=== PATIENT | female | born 1970 | race American Indian/Alaskan Native ===

== ENCOUNTER 2017-02-23 13:54 | Emergency (ER) | payer SELFPAY ==
[2017-02-23 15:02] LABS: Basophils % (Auto) 0.6 % (0.0-1.8); Eosinophils % (Auto) 2.8 % (0.0-4.3); Hematocrit 40.7 % (30.3-42.9); Hemoglobin 13.6 gm/dl (10.1-14.3); Mean Corpuscular HGB Conc 33 % (30-34); Mean Corpuscular Hemoglobin 30 pg (28-32); Mean Corpuscular Volume 90 fl (79-97); Platelet Count 344 K/mm3 (140-440); Red Blood Count 4.51 M/mm3 (3.65-5.03); Red Cell Distribution Width 13.3 % (13.2-15.2); White Blood Count 6.5 K/mm3 (4.5-11.0)
[2017-02-23 15:13] LABS: INR 0.97 (0.87-1.13); Partial Thromboplastin Time 28.6 Sec. (24.2-36.6)
[2017-02-23 15:26] LABS: Anion Gap 17 mmol/L; BUN/Creatinine Ratio 13.75; Blood Urea Nitrogen 11 mg/dL (7-17); Calcium 9.7 mg/dL (8.4-10.2); Carbon Dioxide 26 mmol/L (22-30); Chloride 100.3 mmol/L (98-107); Glucose 78 mg/dL (65-100); Potassium 4.1 mmol/L (3.6-5.0); Sodium 139 mmol/L (137-145)
[2017-02-23] MEDS ORDERED: NACL 0.9% 1000 ML 1,000 ML ONE (17:56)
[2017-02-23] MEDS ORDERED: ULTRAM PO ONE (21:39)
[2017-02-23] MEDS ORDERED: TORADOL IM ONE (21:39)
--- NOTE | 2017-02-23 21:48 | Emergency Department Report ---
ED Chest Pain HPI - General Chief Complaint: Chest Pain Stated Complaint: ABDOMEN, PAIN JAIME BREAST Time Seen by Provider: 02/23/17 21:25 Source: patient Mode of arrival: Ambulatory Limitations: Language Barrier - History of Present Illness Initial Comments: 46-year-old female with a past medical history of hypertension presents to the hospital complaining of 3 weeks of left lower chest wall pain under her left breast. Pain is only present with palpation. Pain rated 7/10 in intensity. Also complains of lower midsternal tenderness. She denies cough, shortness of breath, fever, recent trauma, nausea, vomiting, or diaphoresis. Patient returned from [facility] to 3 weeks ago and states pain started while in [place]. She is noncompliant with her blood pressure medication because it makes her feel dizzy and restless. She denies calf tenderness, edema, or leg asymmetry Severity scale (0 -10): 4 - Related Data Previous Rx's Medication Instructions Recorded Last Taken Type Ibuprofen [Motrin] 800 mg PO Q8HR PRN #30 tablet 02/23/17 Unknown Rx traMADol [Ultram 50 MG tab] 50 mg PO Q6HR PRN #20 tablet 02/23/17 Unknown Rx Allergies Allergy/AdvReac Type Severity Reaction Status Date / Time amlodipine Allergy Dizziness Verified 02/23/17 14:30 Heart Score - HEART Score History: Slightly suspicious EKG: Normal Age: 45-65 Risk factors: 1-2 risk factors Troponin: < normal limit HEART Score: 2 ED Review of Systems ROS: Stated complaint: ABDOMEN, PAIN JAIME BREAST Other details as noted in HPI Comment: All other systems reviewed and negative Other: Constitutional: No fevers chills Eyes: No eye pain visual changes ENT: No ear pain or throat pain Neck: Denies pain Respiratory: Denies cough wheezing shortness of breath Cardiovascular: As per HPI GI: Denies abdominal pain, nausea, vomiting, diarrhea : Denies dysuria Musculoskeletal: Denies back pain Skin: Denies rash, lesions, erythema Neurologic: Denies headache, numbness, weakness Psychiatric: Denies suicidal ideation, hallucinations ED Past Medical Hx - Past Medical History Previous Medical History?: Yes Hx Hypertension: Yes - Surgical History Past Surgical History?: No - Social History Smoking Status: Never Smoker - Medications Home Medications: Home Medications Medication Instructions Recorded Confirmed Last Taken Type Ibuprofen [Motrin] 800 mg PO Q8HR PRN #30 tablet 02/23/17 Unknown Rx traMADol [Ultram 50 MG tab] 50 mg PO Q6HR PRN #20 tablet 02/23/17 Unknown Rx ED Physical Exam - General Limitations: Language Barrier - Other Other exam information: General: No limitations, patient is alert in no acute distress Head exam: Atraumatic, normocephalic Eyes exam: Normal appearance ENT: Moist mucous membrane, normal oropharynx Neck exam: Normal inspection, full range of motion, no meningismus nontender Respiratory exam: Clear to auscultation bilateral, no wheezes, rales, crackles Cardiovascular: Normal rate and rhythm, reproducible chest wall tenderness at a specific area of the anterior lower left ribs and the lower sternum Abdomen: Soft, nondistended, and nontender, with normal bowel sounds, no rebound, or guarding Extremity: Full range of motion normal inspection no deformity, no calf tenderness or edema Back: Normal Inspection, full range of motion, no tenderness Neurologic: Alert, oriented x3, cranial nerves intact, no motor or sensory deficit Psychiatric: normal affect, normal mood Skin: Warm, dry, intact ED Course Vital Signs 02/23/17 02/23/17 14:30 20:44 Temperature 98.5 F Pulse Rate 70 80 Respiratory 16 16 Rate Blood Pressure 160/99 Blood Pressure 164/80 [Left] O2 Sat by Pulse 100 100 Oximetry - Reevaluation(s) Reevaluation #1: 02/23/17 21:46 Toradol and tramadol ordered. D-dimer and chest x-ray pending. RONA score - Rona Score Age > 65: (0) No Aspirin use within the Past 7 Days: (0) No 3 or more CAD Risk Factors: (0) No 2 or more Angina events in past 24 hrs: (0) No Known CAD with more than 50% Stenosis: (0) No Elevated Cardiac Markers: (0) No ST Deviation Greater than 0.5mm: (0) No RONA Score: 0 ED Medical Decision Making - Lab Data Result diagrams: 02/23/17 14:44 02/23/17 14:44 Lab Results 02/23/17 02/23/17 02/23/17 Range/Units 14:44 14:44 14:44 WBC 6.5 (4.5-11.0) K/mm3 RBC 4.51 (3.65-5.03) M/mm3 Hgb 13.6 (10.1-14.3) gm/dl Hct 40.7 (30.3-42.9) % MCV 90 (79-97) fl MCH 30 (28-32) pg MCHC 33 (30-34) % RDW 13.3 (13.2-15.2) % Plt Count 344 (140-440) K/mm3 Lymph % (Auto) 50.9 H (13.4-35.0) % [place] % (Auto) 8.2 H (0.0-7.3) % Eos % (Auto) 2.8 (0.0-4.3) % Baso % (Auto) 0.6 (0.0-1.8) % Lymph # 3.3 (1.2-5.4) K/mm3 [place] # 0.5 (0.0-0.8) K/mm3 Eos # 0.2 (0.0-0.4) K/mm3 Baso # 0.0 (0.0-0.1) K/mm3 Seg Neutrophils % 37.5 L (40.0-70.0) % Seg Neutrophils # 2.5 (1.8-7.7) K/mm3 PT 12.8 (12.2-14.9) Sec. INR 0.97 (0.87-1.13) APTT 28.6 (24.2-36.6) Sec. D-Dimer (0-234) ng/mlDDU Sodium 139 (137-145) mmol/L Potassium 4.1 (3.6-5.0) mmol/L Chloride 100.3 (98-107) mmol/L Carbon Dioxide 26 (22-30) mmol/L Anion Gap 17 mmol/L BUN 11 (7-17) mg/dL Creatinine 0.8 (0.7-1.2) mg/dL Estimated GFR > 60 ml/min BUN/Creatinine Ratio 13.75 % Glucose 78 (65-100) mg/dL Calcium 9.7 (8.4-10.2) mg/dL Troponin T < 0.010 (0.00-0.029) ng/mL 02/23/17 02/23/17 02/23/17 Range/Units 17:08 19:29 21:44 WBC (4.5-11.0) K/mm3 RBC (3.65-5.03) M/mm3 Hgb (10.1-14.3) gm/dl Hct (30.3-42.9) % MCV (79-97) fl MCH (28-32) pg MCHC (30-34) % RDW (13.2-15.2) % Plt Count (140-440) K/mm3 Lymph % (Auto) (13.4-35.0) % [place] % (Auto) (0.0-7.3) % Eos % (Auto) (0.0-4.3) % Baso % (Auto) (0.0-1.8) % Lymph # (1.2-5.4) K/mm3 [place] # (0.0-0.8) K/mm3 Eos # (0.0-0.4) K/mm3 Baso # (0.0-0.1) K/mm3 Seg Neutrophils % (40.0-70.0) % Seg Neutrophils # (1.8-7.7) K/mm3 PT (12.2-14.9) Sec. INR (0.87-1.13) APTT (24.2-36.6) Sec. D-Dimer < 135.00 (0-234) ng/mlDDU Sodium (137-145) mmol/L Potassium (3.6-5.0) mmol/L Chloride (98-107) mmol/L Carbon Dioxide (22-30) mmol/L Anion Gap mmol/L BUN (7-17) mg/dL Creatinine (0.7-1.2) mg/dL Estimated GFR ml/min BUN/Creatinine Ratio % Glucose (65-100) mg/dL Calcium (8.4-10.2) mg/dL Troponin T < 0.010 < 0.010 (0.00-0.029) ng/mL - EKG Data -: EKG Interpreted by Me (sinus rhythm rate 72 left atrial enlargement, no ST elevation) - EKG Data 02/23/17 21:47 Repeat EKG sinus rate [address] elevation - Radiology Data Radiology results: image reviewed (chest x-ray PA and lateral: No acute findings ) - Medical Decision Making Plan to discharge patient home. Chest pain is reproducible in ongoing. No other associated symptoms. Cardiac enzymes negative 3, EKG unremarkable, d- dimer negative combine with a low pretest probability for PE /dvt - Differential Diagnosis costochondritis, chest wall pain, PE, PA Critical Care Time: No Critical care attestation.: If time is entered above; I have spent that time in minutes in the direct care of this critically ill patient, excluding procedure time. ED Disposition Clinical Impression: Chest wall pain, HTN (hypertension) Disposition: TO HOME OR SELFCARE Is pt being admited?: No Does the pt Need Aspirin: No Condition: Stable Instructions: Costochondritis (ED), Hypertension (ED) Additional Instructions: Take the medication as prescribed. Follow-up with the primary care doctor provided with a doctor of choice. Return if symptoms worse Prescriptions: Ibuprofen [Motrin] 800 mg PO Q8HR PRN #30 tablet PRN Reason: Pain traMADol [Ultram 50 MG tab] 50 mg PO Q6HR PRN #20 tablet PRN Reason: Pain Referrals: CHRIS ROBERSON MD [Staff Physician] - 3-5 Days [facility] [Provider Group] - 3-5 Days Time of Disposition: 22:31
[2017-02-23 22:44] VITALS: BP 153/80
--- NOTE | 2017-02-24 07:31 | XRay Report ---
CHEST 2 VIEWS INDICATION: Chest pain. COMPARISON: None similar at this institution. FINDINGS: PA and lateral chest radiographs demonstrate normal cardiomediastinal silhouette. Clear lungs. Mild mid thoracic spine degenerative endplate spurring. Hair/braid artifacts overlie the supraclavicular regions. CONCLUSION: No acute disease in the chest. Thank you for the opportunity to participate in this patient's care.
== END 2017-02-23 22:44 | disposition home or self-care (01) ==
LOC: ED 13:54
DX: R07.89 Other chest pain (principal); I10 Essential (primary) hypertension
CPT/HCPCS: 36415; 71020; 80048; 84484; 85025; 85379; 85610; 85730; 93005; 93010; 96372; 99284; J1885; J7030

== ENCOUNTER 2017-03-07 15:30 | Emergency (ER) | payer SELFPAY ==
--- NOTE | 2017-03-07 18:31 | Emergency Department Report ---
Chief Complaint: Chest Pain Stated Complaint: CP Time Seen by Provider: 03/07/17 18:30 - HPI History of Present Illness: Patient here reports that she is having an pain below her left breast and swelling below her left breast. Patient was seen here on 02/23/2017 and treated for costochondritis she had a EKG done and cardiac workup which were negative and she was at low risk for pulmonary embolism. EKG today has no significant change from EKG on 02/23/2017. Patient was discharged home with prescription for tramadol and Motrin and was told to follow-up but she did not follow-up and return to the emergency room. Denies any shortness of breath. Denies any trauma. Denies any fever or chills. Denies any coughing. Denies any history of cardiac disease patient has a history of high blood pressure and her blood pressure is stable today. - ROS Review of Systems: All systems are negative unless stated in HPI above - Exam Vital Signs: Vital Signs 03/07/17 15:55 Temperature 98.4 F Pulse Rate 68 Respiratory 16 Rate Blood Pressure 167/72 O2 Sat by Pulse 100 Oximetry Physical Exam: Gen.: This is a 46-year-old female well-nourished well-developed and nontoxic in appearance CV: S1, S2. Regular rate rhythm negative murmur. Patient with swelling in 2 left rib cage below her left breast with mild tenderness to palpate but no guarding. No erythema noted. Lungs: Clear to auscultate bilaterally, no rhonchi wheezes or rales. Normal work of breathing MSE screening note: Focused history and physical exam performed. Due to findings the following was ordered:See MDM ED Medical Decision Making - Medical Decision Making MDM: Patient screened by provider in triage area. Appropriate protocol initiated and patient to be seen in main ED by ED Disposition for MSE Condition: Stable Referrals: PRIMARY CARE, [Primary Care Provider] - 3-5 Days
[2017-03-07 19:55] LABS: Basophils % (Auto) 0.7 % (0.0-1.8); Eosinophils % (Auto) 4.2 % (0.0-4.3); Hematocrit 37.7 % (30.3-42.9); Hemoglobin 12.8 gm/dl (10.1-14.3); Mean Corpuscular HGB Conc 34 % (30-34); Mean Corpuscular Hemoglobin 30 pg (28-32); Mean Corpuscular Volume 89 fl (79-97); Platelet Count 296 K/mm3 (140-440); Red Blood Count 4.25 M/mm3 (3.65-5.03); Red Cell Distribution Width 13.1 % (13.2-15.2); White Blood Count 8.5 K/mm3 (4.5-11.0)
[2017-03-07 19:58] LABS: Anion Gap 19 mmol/L; BUN/Creatinine Ratio 18.75; Blood Urea Nitrogen 15 mg/dL (7-17); Carbon Dioxide 23 mmol/L (22-30); Chloride 101.1 mmol/L (98-107); Glucose 125 mg/dL (65-100); Potassium 4.1 mmol/L (3.6-5.0); Sodium 139 mmol/L (137-145)
--- NOTE | 2017-03-08 03:31 | Emergency Department Report ---
ED General Adult HPI - General Chief complaint: Chest Pain Stated complaint: CP Time Seen by Provider: 03/07/17 18:30 Source: patient, family, RN notes reviewed, old records reviewed Mode of arrival: Ambulatory Limitations: Language Barrier (patient declines formal manager urology, request that daughter/family translate) - History of Present Illness Initial comments: This is a 46-year-old female, the patient is previously unknown to me. Has a past medical history of hypertension. Patient presents to the ER with a complaint of left-sided chest wall/inframammary breast pain for 2 months. The pain is intermittent. It does not radiate to the back, arms and neck. There is no vomiting, diaphoresis or shortness of breath. Patient recently had a trip from [facility] within the past month, seen in this department a few days ago for similar symptoms, had 3 negative troponins, and a negative d-dimer. Was prescribed symptomatically medications, but patient did not take them. -: Gradual, week(s), month(s) Location: chest Quality: aching Consistency: intermittent Improves with: none Worsens with: none Associated Symptoms: denies other symptoms - Related Data Previous Rx's Medication Instructions Recorded Last Taken Type Ibuprofen [Motrin] 800 mg PO Q8HR PRN #30 tablet 02/23/17 Unknown Rx traMADol [Ultram 50 MG tab] 50 mg PO Q6HR PRN #20 tablet 02/23/17 Unknown Rx Allergies Allergy/AdvReac Type Severity Reaction Status Date / Time amlodipine Allergy Dizziness Verified 02/23/17 14:30 ED Review of Systems ROS: Stated complaint: CP Other details as noted in HPI Constitutional: denies: fever ENT: denies: hearing loss Respiratory: denies: cough Cardiovascular: denies: syncope Gastrointestinal: denies: abdominal pain Musculoskeletal: back pain Skin: denies: lesions Neurological: denies: weakness Psychiatric: denies: anxiety ED Past Medical Hx - Past Medical History Previous Medical History?: Yes Hx Hypertension: Yes - Surgical History Past Surgical History?: No - Social History Smoking Status: Never Smoker Substance Use Type: None - Medications Home Medications: Home Medications Medication Instructions Recorded Confirmed Last Taken Type Ibuprofen [Motrin] 800 mg PO Q8HR PRN #30 tablet 02/23/17 Unknown Rx traMADol [Ultram 50 MG tab] 50 mg PO Q6HR PRN #20 tablet 02/23/17 Unknown Rx ED Physical Exam - General Limitations: No Limitations General appearance: alert, in no apparent distress - Head Head exam: Present: atraumatic, normocephalic - Eye Eye exam: Present: normal appearance, EOMI. Absent: nystagmus - ENT ENT exam: Present: normal exam, normal orophraynx, mucous membranes moist, normal external ear exam - Neck Neck exam: Present: normal inspection, full ROM. Absent: tenderness, meningismus - Respiratory Respiratory exam: Present: normal lung sounds bilaterally, chest wall tenderness , other (bilateral breast exam is unremarkable and within normal limits. During the breast examination, I am escorted by nurse Rubens dorman). Absent: respiratory distress, wheezes, rales, rhonchi, stridor - Cardiovascular Cardiovascular Exam: Present: regular rate, normal rhythm, normal heart sounds. Absent: bradycardia, tachycardia, irregular rhythm, systolic murmur, diastolic murmur, rubs, gallop - GI/Abdominal GI/Abdominal exam: Present: soft, normal bowel sounds. Absent: distended, tenderness, guarding, rebound, rigid, pulsatile mass - Extremities Exam Extremities exam: Present: normal inspection, full ROM, normal capillary refill. Absent: tenderness, pedal edema, joint swelling, calf tenderness - Back Exam Back exam: Present: normal inspection, full ROM. Absent: tenderness, CVA tenderness (R), CVA tenderness (L), muscle spasm, paraspinal tenderness, vertebral tenderness - Neurological Exam Neurological exam: Present: alert, normal gait, other (Extraocular movements intact. Tongue midline. No facial droop. Facial sensation intact to light touch in the V1, V2, V3 distribution bilaterally. 5 and 5 strength in 4 extremities.. Sensation is intact to light touch in 4 extremities.). Absent: motor sensory deficit - Psychiatric Psychiatric exam: Present: normal affect, normal mood - Skin Skin exam: Present: warm, dry, intact, normal color. Absent: rash ED Course Vital Signs 03/07/17 03/08/17 03/08/17 15:55 00:57 03:51 Temperature 98.4 F Pulse Rate 68 67 62 Respiratory 16 16 18 Rate Blood Pressure 167/72 Blood Pressure 180/77 165/78 [Left] O2 Sat by Pulse 100 100 100 Oximetry ED Medical Decision Making - Lab Data Result diagrams: 03/07/17 19:20 03/07/17 19:20 Vital Signs 03/07/17 03/08/17 03/08/17 15:55 00:57 03:51 Temperature 98.4 F Pulse Rate 68 67 62 Respiratory 16 16 18 Rate Blood Pressure 167/72 Blood Pressure 180/77 165/78 [Left] O2 Sat by Pulse 100 100 100 Oximetry Lab Results 03/07/17 03/07/17 03/07/17 Range/Units 19:20 19:20 19:20 WBC 8.5 (4.5-11.0) K/mm3 RBC 4.25 (3.65-5.03) M/mm3 Hgb 12.8 (10.1-14.3) gm/dl Hct 37.7 (30.3-42.9) % MCV 89 (79-97) fl MCH 30 (28-32) pg MCHC 34 (30-34) % RDW 13.1 L (13.2-15.2) % Plt Count 296 (140-440) K/mm3 Lymph % (Auto) 50.6 H (13.4-35.0) % Daniels % (Auto) 7.0 (0.0-7.3) % Eos % (Auto) 4.2 (0.0-4.3) % Baso % (Auto) 0.7 (0.0-1.8) % Lymph # 4.3 (1.2-5.4) K/mm3 Daniels # 0.6 (0.0-0.8) K/mm3 Eos # 0.4 (0.0-0.4) K/mm3 Baso # 0.1 (0.0-0.1) K/mm3 Seg Neutrophils % 37.5 L (40.0-70.0) % Seg Neutrophils # 3.2 (1.8-7.7) K/mm3 Sodium 139 (137-145) mmol/L Potassium 4.1 (3.6-5.0) mmol/L Chloride 101.1 (98-107) mmol/L Carbon Dioxide 23 (22-30) mmol/L Anion Gap 19 mmol/L BUN 15 (7-17) mg/dL Creatinine 0.8 (0.7-1.2) mg/dL Estimated GFR > 60 ml/min BUN/Creatinine Ratio 18.75 % Glucose 125 H (65-100) mg/dL Calcium 10.0 (8.4-10.2) mg/dL Troponin T < 0.010 (0.00-0.029) ng/mL HCG, Qual Negative (Negative) - EKG Data -: EKG Interpreted by Me - EKG Data 03/08/17 03:56 Normal sinus, 69 beats per minute, normal intervals, normal axis, not morphologically consistent with STEMI, unchanged from prior EKG from February 2017. - Radiology Data Radiology results: image reviewed interpreted by me: X-ray of the chest/rib series negative - Medical Decision Making Differential diagnosis: Costochondritis, pneumonia, acute coronary syndrome, atypical chest pain Assessment and plan: 46-year-old female with reported history 2 months of chest pain. Low risk by RONA score, low risk by heart score, low risk by well's criteria, recently had a negative d-dimer, perc negative. Vital signs unremarkable with the exception of slight hypertension, patient is suitable to follow-up in outpatient primary care doctor. As per the [employer] clinical policy, myocardial infarction may be excluded with 1 set of cardiac enzymes symptoms have been present for greater than 8 hours. Her symptoms have been present for weeks and months. Critical care attestation.: If time is entered above; I have spent that time in minutes in the direct care of this critically ill patient, excluding procedure time. ED Disposition Clinical Impression: Chest wall pain Disposition: DC-01 TO HOME OR SELFCARE Is pt being admited?: No Does the pt Need Aspirin: No Condition: Stable Instructions: Costochondritis (ED) Additional Instructions: Take the medications that were prescribed a few on her previous visit. Follow up with the primary care doctor or maintenance person within the next 2-3 weeks. Return to the ER right away with new pain, worsened pain, migration of pain, fevers, chills, lethargy, irritability, projectile vomiting, change in mental status, inability to tolerate liquid feeds. Referrals: VIPUL OWENS MD [Primary Care Provider] - 3-5 Days IVAN WILCOX MD [Staff Physician] - 3-5 Days [facility] [Provider Group] - 3-5 Days [facility] [Provider Group] - 3-5 Days [facility], [Provider Group] - 3-5 Days
[2017-03-08] MEDS ORDERED: MOTRIN PO ONE (03:32)
[2017-03-08 03:52] VITALS: BP 165/78
--- NOTE | 2017-03-08 07:30 | XRay Report ---
LEFT RIBS, 3 VIEWS: History: Left rib pain and swelling. Routine views of the rib cage demonstrate normal mineralization with no significant contour abnormalities, fractures or destructive lesions. PA view of the chest demonstrates no underlying cardiopulmonary abnormalities, fluid or pneumothorax. IMPRESSION: Unremarkable left rib series.
== END 2017-03-08 03:56 | disposition home or self-care (01) ==
LOC: ED 15:30
DX: R07.89 Other chest pain (principal); I10 Essential (primary) hypertension; Z88.8 Allergy status to other drugs, medicaments and biological substances
CPT/HCPCS: 36415; 80048; 84484; 84703; 85025; 93005; 93010; 99284